=== PATIENT | female | born 1995 | race Two or more races ===

== ENCOUNTER 2025-05-04 16:59 | Emergency (ER) | payer OTHER ==
[~2025-05-04] VITALS: Ht 154.9 cm; Wt 70.0 kg
[2025-05-04] MEDS ORDERED: ACETAMINOPHEN 500 MG TAB or CAP PO ONE (18:00)
--- NOTE | 2025-05-04 18:06 | ED.PDOC ---
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 Pt states she has been having heavy vaginal bleeding with clots since 1630 this afternoon. Pt states she started to have diffuse lower pelvic abdominal pain, and states while using the restroom, she started to pass multiple blood clots. Pt started to have cramping lower abdominal pain and came to the ED for evaluation. Pt otherwise in the ED, states she is not on control. Pt denies associated fever, chills, nausea, vomiting, dizziness or associated symptoms. Pt has noted BP of 141/84 with otherwise stable vitals including temp of 98.2 F, RR 18, heart rate 92 and 02 sat of 98% on room air. Pt otherwise denies any other symptoms at this time. 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 Moist mucous membranes.) Neck: Full Range of Motion, Normal Inspection Respiratory: Lungs Clear, No Accessory Muscle Use, No Respiratory Distress, Normal Breath Sounds Cardiovascular: No Edema, No JVD, Regular Rate/Rhythm Breast Exam: Deferred Gastrointestinal: Non Tender, Soft Genitalia: Deferred Pelvic: Deferred Rectal: Deferred Extremities: Normal inspection, Normal range of motion, Non-tender, No pedal edema Neurologic: Alert (Oriented x4), Normal Affect, Normal Mood, Other (Ambulatory) Cerebellar Function: NOT DONE Reflexes: NOT DONE Skin: Dry, Normal Color, Warm Lymphatic: NOT DONE Was a procedure done? Was a procedure done?: No Differential Diagnosis (DIRECTOR OF SPEECH PATHOLOGY) Vaginal Bleeding: Blood Loss Anemia, Hormonal, Menorrhagia, Menstrual Bleeding, Myomatous Uterus, UTI, Vaginitis, Other (, coagulopathy, among others) X-Ray, Labs, Meds, VS Vital Signs Date Time Temp Pulse Resp B/P (MAP) Pulse Ox O2 Delivery O2 Flow Rate FiO2 05/04/25 17:04 98.2 92 18 141/84 98 98.2 Lab Test 05/04/25 18:14 05/04/25 17:56 Range/Units White Blood Count 9.4 4.4-10.8 10^3/uL Red Blood Count 4.72 4.0-5.20 10^6/uL Hemoglobin 14.0 12.2-16.2 g/dL Hematocrit 41.6 36.0-46.0 % Mean Corpuscular Volume 88.1 80.0-100.0 fL Mean Corpuscular Hemoglobin 29.8 28.0-32.0 pg Mean Corpuscular Hemoglobin Concent 33.8 32.0-36.0 g/dL Red Cell Distribution Width 13.7 11.8-14.3 % Platelet Count 344 140-450 10^3/uL Mean Platelet Volume 8.1 6.9-10.8 fL Neutrophils (%) (Auto) 59.0 37.0-80.0 % Lymphocytes (%) (Auto) 33.0 10.0-50.0 % Monocytes (%) (Auto) 6.0 0.0-12.0 % Eosinophils (%) (Auto) 1.6 0.0-7.0 % Basophils (%) (Auto) 0.4 0.0-2.0 % Neutrophils # (Auto) 5.5 1.6-8.6 10 ^3/uL Lymphocytes # (Auto) 3.1 0.4-5.4 10 ^3/uL Monocytes # (Auto) 0.6 0-1.3 10 ^3/uL Eosinophils # (Auto) 0.1 0-0.8 10 ^3/uL Basophils # (Auto) 0 0-0.2 10 ^3/uL Nucleated Red Blood Cells 0.2 % Prothrombin Time 10.8 9.3-11.8 sec Prothrombin Time INR 1.02 0.9-1.15 Activated Partial Thromboplast Time 29.7 24.5-34.5 SEC Sodium Level 139 136-145 mmol/L Potassium Level 3.7 3.5-5.1 mmol/L Chloride Level 104 98-107 mmol/L Carbon Dioxide Level 25 20-31 mmol/L Anion Gap 10 5-15 Blood Urea Nitrogen 7 L 9-23 mg/dL Creatinine 0.66 0.550-1.02 mg/dL Glomerular Filtration Rate Calc 122 >90 mL/min BUN/Creatinine Ratio 10.6 10.0-20.0 Serum Glucose 102 74-106 mg/dL Calcium Level 9.6 8.7-10.4 mg/dL Urine Color Colorless Yellow Urine Clarity Clear Clear Urine pH 6.0 5.0-9.0 Urine Specific [place] 1.010 1.001-1.035 Urine Protein Negative Negative Urine Ketones Negative Negative Urine Blood 3+ H Negative /uL Urine Nitrite Negative Negative Urine Bilirubin Negative Negative Urine Urobilinogen Normal Negative mg/dL Urine Leukocyte Esterase Trace Negative /uL Urine RBC 309 0 - 4 /hpf Urine Microscopic WBC 26 H 0-5 /HPF Urine Squamous Epithelial Cells Few <5 /hpf Urine Bacteria None seen None Seen /hpf Urine Glucose Normal Normal mg/dL Urine Test Positive Negative [place] [address] Ph: [phone] DIAGNOSTIC IMAGING Diagnostic Imaging Report : [id number] Signed PATIENT: DAMARIS ROMOACCT: [id number] UNIT: [id number] : 1995 LOC: ER ROOM / BED: / AGE / SEX: 29 / F ADM STATUS: REG ER SERVICE [id number] ORDERING PHYSICIAN: CHRISTIAN PATEL MD PROCEDURE(s): OB4US - OB ULTRASOUND COMP LESS 14WKS REASON: vag bleed, pelvic pain ORDER NUMBER(s): [id number], ACCESSION NUMBER(s): [id number] EXAM: US OB ULTRASOUND COMP LESS 14WKS HISTORY: vag bleed, pelvic pain COMPARISON: US OB TRANS VAGINAL US on DOS: 05/04/25 TECHNIQUE: Transabdominal and transvaginal imaging was utilized. Grayscale and color doppler evaluation. Images were stored in the patient's permanent medical record. FINDINGS: UTERUS: 8.1 x 5.1 x 6.8 cm. No visualized intrauterine . Significant abnormal endometrial stripe thickening with abnormal cystic components with insinuating /curvilinear morphology along the endometrial stripe. RIGHT OVARY: 3.6 x 3.5 x 1.8 cm.Normal vascularity. No suspicious masses or cysts. LEFT OVARY: 3 x 3.9 x 1.8 cm. Normal vascularity. No suspicious masses or cysts. OTHER: No free fluid is identified. IMPRESSION: 1. No visualized intrauterine . 2. Significant abnormal endometrial stripe thickening with abnormal cystic components with insinuating /curvilinear morphology along the endometrial stripe. Consider short-term imaging follow-up along with serial beta HCG and imaging findings may represent in progress ATED BY: LISA GARCIA MD DICTATED DATE/TIME: 05/04/251931 SIGNED BY: LISA GARCIA MD SIGNED DATE/TIME: 05/04/251931 CC: X-Ray, Labs, Meds, VS Comment 29-year-old female with no significant past medical history complaining of pelvic pain and heavy vaginal bleeding with clots Vitals remarkable for BP 141/84 Exam unremarkable Rhythm strip independently interpreted by me: Sinus rhythm, rate 92, no ectopy. Ob ultrasound IMPRESSION: 1. No visualized intrauterine . 2. Significant abnormal endometrial stripe thickening with abnormal cystic components with insinuating /curvilinear morphology along the endometrial stripe. Consider short-term imaging follow-up along with serial beta HCG and imaging findings may represent in progress CBC, basic metabolic panel, coagulation panel unremarkable. UA positive for blood and WBCs, no bacteria. Urine positive. Serum quantitative hCG pending Patient treated with the following in the ED: Tylenol 1 g p.o. On re-evaluation, pain has improved. Vitals were stable. Current workup could represent early versus ectopic versus in progress. Patient advised regarding findings and need for follow-up either in the ED or with OBGYN for repeat serum quantitative hCG and repeat ultrasound. Patient appears stable for discharge and will be referred to Dr. Cobos. Rx Tylenol Time of 1ST Reevaluation: 21:00 Reevaluation 1ST: Improved Patient Education/Counseling: Diagnosis, Treatment Family Education/Counseling: No Family Present Departure 1 Departure Time of Disposition: 21:00 Impression: Primary Impression: Vaginal bleeding affecting early Disposition: 01 HOME / SELF CARE / HOMELESS Condition: Stable Referrals: GEORGE COBOS DO Additional Instructions: Your blood tests were unremarkable. Your test was positive. Your ultrasound did not show a inside the uterus, but it may be either too early to see the , you may have recently been and are now having a miscarriage, or you may have a outside the uterus (known as an ectopic ). I have prescribed pain medication. Follow-up with an OBGYN or in ED in 2-3 days for repeat hormone level (serum quantitative hCG) and repeat ultrasound. [facility] [id number] [place] [id number] Ph: [phone] DIAGNOSTIC IMAGING Diagnostic Imaging Report : [id number] Signed PATIENT: DAMARIS ROMO ACCT: [id number] UNIT: [id number] : 1995 LOC: ER ROOM / BED: / AGE / SEX: 29 / F ADM STATUS: REG ER SERVICE [id number] ORDERING PHYSICIAN: CHRISTIAN PATEL MD PROCEDURE(s): OB4US - OB ULTRASOUND COMP LESS 14WKS REASON: vag bleed, pelvic pain ORDER NUMBER(s): [id number], ACCESSION NUMBER(s): [id number] EXAM: US OB ULTRASOUND COMP LESS 14WKS HISTORY: vag bleed, pelvic pain COMPARISON: US OB TRANS VAGINAL US on DOS: 05/04/25 TECHNIQUE: Transabdominal and transvaginal imaging was utilized. Grayscale and color doppler evaluation. Images were stored in the patient's permanent medical record. FINDINGS: UTERUS: 8.1 x 5.1 x 6.8 cm. No visualized intrauterine . Significant abnormal endometrial stripe thickening with abnormal cystic components with insinuating /curvilinear morphology along the endometrial stripe. RIGHT OVARY: 3.6 x 3.5 x 1.8 cm.Normal vascularity. No suspicious masses or cysts. LEFT OVARY: 3 x 3.9 x 1.8 cm. Normal vascularity. No suspicious masses or cysts. OTHER: No free fluid is identified. IMPRESSION: 1. No visualized intrauterine . 2. Significant abnormal endometrial stripe thickening with abnormal cystic components with insinuating /curvilinear morphology along the endometrial stripe. Consider short-term imaging follow-up along with serial beta HCG and imaging findings may represent in progress e-Prescriptions Acetaminophen (Tylenol Extra Strength) 500 Mg Tab 1000 MG PO Q6HP PRN, #30 TAB Prov: CHRISTIAN PATEL MD 05/04/25 Discharged With: Relative Critical Care Note Critical Care Time?: No Stability Stability form required: No Heart Score Heart Score: Heart Score Response (Comments) Value History N/A 0 EKG N/A 0 Age N/A 0 Risk Factors N/A 0 Troponin N/A 0 Total 0 I personally scribed for CHRISTIAN PATEL MD ([facility]) on 05/04/25 at 18:06. Electronically submitted by Jani Flores ([facility]). I personally scribed for CHRISTIAN PATEL MD ([email or web address]) on 05/04/25 at 18:25. Electronically submitted by Jani Flores ([facility]). I personally scribed for CHRISTIAN PATEL MD ([facility]) on 05/04/25 at 20:22. Electronically submitted by Jani Flores ([facility]). CHRISTIAN PATEL MD May 04, 2025 18:06
[2025-05-04 18:31] LABS: Hematocrit 41.6 % (36.0-46.0); Hemoglobin 14.0 g/dL (12.2-16.2); Mean Corpuscular Hemoglobin 29.8 pg (28.0-32.0); Mean Corpuscular Volume 88.1 fL (80.0-100.0); Nucleated Red Blood Cells % 0.2 %
[2025-05-04 18:35] LABS: Urine Protein, UAD Negative (Negative)
[2025-05-04 18:45] LABS: Chloride 104 mmol/L (98-107); INR 1.02 (0.9-1.15); Partial Thromboplastin Time 29.7 SEC (24.5-34.5); Potassium 3.7 mmol/L (3.5-5.1); Prothrombin Time 10.8 sec (9.3-11.8); Sodium 139 mmol/L (136-145)
[2025-05-04 18:46] LABS: Anion Gap 10 (5-15); Calcium 9.6 mg/dL (8.7-10.4); Carbon Dioxide 25 mmol/L (20-31)
[2025-05-04 18:51] LABS: BUN/Creatinine Ratio 10.6 (10.0-20.0); Glucose 102 mg/dL (74-106)
[2025-05-04 18:54] LABS: Blood Urea Nitrogen 7 mg/dL (9-23)
--- NOTE | 2025-05-04 19:34 | DVH ---
EXAM: US OB ULTRASOUND COMP LESS 14WKS HISTORY: vag bleed, pelvic pain COMPARISON: US OB TRANS VAGINAL US on DOS: 05/04/25 TECHNIQUE: Transabdominal and transvaginal imaging was utilized. Grayscale and color doppler evaluati on. Images were stored in the patient's permanent medical record. FINDINGS: UTERUS: 8.1 x 5.1 x 6.8 cm. No visualized intrauterine . Significant abnormal endometrial st ripe thickening with abnormal cystic components with insinuating /curvilinear morphology along the en dometrial stripe. RIGHT OVARY: 3.6 x 3.5 x 1.8 cm.Normal vascularity. No suspicious masses or cysts. LEFT OVARY: 3 x 3.9 x 1.8 cm. Normal vascularity. No suspicious masses or cysts. OTHER: No free fluid is identified. IMPRESSION: 1. No visualized intrauterine . 2. Significant abnormal endometrial stripe thickening with abnormal cystic components with insinuatin g /curvilinear morphology along the endometrial stripe. Consider short-term imaging follow-up along w ith serial beta HCG and imaging findings may represent in progress
[2025-05-04] MEDS ORDERED: ACET-1304 PO (21:03)
[2025-05-04 21:47] VITALS: BP 144/91; PULSE 73; RESP 20; TEMP 98.5; O2SAT 100
== END 2025-05-04 21:50 | disposition home or self-care (01) ==
LOC: ER 16:59
DX: O20.9 Hemorrhage in early pregnancy, unspecified (principal)
CPT/HCPCS: 36415; 76801; 76817; 80048; 81001; 81025; 84702; 85025; 85610; 85730

== ENCOUNTER 2025-05-21 10:53 | Outpatient (CLI) | payer OTHER ==
[~2025-05-21 10:53] MED LIST: ACET-1304 PO
[2025-05-21 11:36] LABS: Hematocrit 34.5 % (36.0-46.0); Hemoglobin 11.4 g/dL (12.2-16.2); Mean Corpuscular Hemoglobin 29.0 pg (28.0-32.0); Mean Corpuscular Volume 87.7 fL (80.0-100.0); Nucleated Red Blood Cells % 0.0 %
[2025-05-22] MEDS ORDERED: IBUP-1454 PO (04:52)
[2025-05-22] MEDS ORDERED: ACET650T12 PO (04:52)
== END 2025-05-21 17:00 | disposition home or self-care (01) ==
LOC: LAB 10:53
DX: O03.9 Complete or unspecified spontaneous abortion without complication (principal); R10.2 Pelvic and perineal pain
CPT/HCPCS: 36415; 84702; 85025

== ENCOUNTER 2025-05-22 02:01 | Emergency (ER) | payer OTHER ==
[~2025-05-22] VITALS: Ht 160 cm; Wt 79.5 kg
--- NOTE | 2025-05-22 02:31 | ED.PDOC ---
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 Patient is a had a miscarriage last May 04, has been having vaginal bleeding since then. She saw her OB yesterday, and was prescribed Cytotec. However a she took the medications, vaginal bleeding the got more profuse, with clots, with worsening of lower abdominal cramping pain, nausea, vomiting. States she has been changing pads 4x/ hour recently REVIEW OF SYSTEMS: No fever, no chills, or fatigue HEENT: No sore throat, no earache, no congestion, no neck pain. Cardiac: No chest pain. No palpitations. Lungs: No shortness of breath, no cough. GI: (+) nausea, (+) vomiting, no diarrhea, no constipation, (+) abdominal pain : No dysuria, frequency, or urgency. No hematuria. (+) vaginal bleeding Musculoskeletal: No joint pain , no joint swelling, no extremity edema. Skin: No rash, no itching. Neuro: No headache, no dizziness, no weakness PHYSICAL EXAM: General: Awake, alert and oriented. No acute distress. Skin: Skin in warm, dry and intact without rashes or lesions. HEENT: The head is normocephalic and atraumatic. Conjunctivae are clear without exudates or hemorrhage. Sclera is non-icteric. Neck: Normal range of motion. No JVD. Cardiac: Regular rate Respiratory: No signs of respiratory distress. No Stridor. Abdomen: Positive suprapubic tenderness Extremities: Upper and lower extremities are atraumatic in appearance without deformity. Neurological: The patient is awake, alert and oriented to person, place, and time with normal speech. Speech is clear. There is no facial asymmetry. Psychiatric: Appropriate mood and affect. Good judgement and insight. Chief Complaint: Vaginal Bleed Time Seen by MD: 02:29 Reviewed Notes: Nurses Notes Allergies: Coded Allergies: NO KNOWN ALLERGIES (Unverified , 05/04/25) Home Meds Active Scripts Ibuprofen (Ibuprofen) 600 Mg Tab, 1 TAB PO TID, #15 TAB Prov:CLEM JEFFERSON MD 05/22/25 Acetaminophen (Acetaminophen Er) 650 Mg Tab, 650 MG PO TIDPRN PRN, #15 TAB Prov:CLEM JEFFERSON MD 05/22/25 Acetaminophen (Tylenol Extra Strength) 500 Mg Tab, 1000 MG PO Q6HP PRN, #30 TAB Prov:CHRISTIAN PATEL MD 05/04/25 Mode of Arrival: Ambulatory Timing: Days Past Medical History PAST MEDICAL HISTORY: Denies Surgical History: Denies all surgeries 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 Was a procedure done?: No Differential Diagnosis (RIG OPERATOR) Vaginal Bleeding: - Incomplete, - Inevitable, - Missed, - Threatened, Blood Loss Anemia, Menorrhagia, Menometrorrhagia, UTI X-Ray, Labs, Meds, VS Vital Signs Date Time Temp Pulse Resp B/P (MAP) Pulse Ox O2 Delivery O2 Flow Rate FiO2 05/22/25 05:31 Room Air* 0 21 05/22/25 04:32 70 18 120/70 05/22/25 04:05 73 18 105/72 05/22/25 03:49 97.8 73 14 105/72 (83) 99 97.8 05/22/25 02:01 97.7 73 18 122/75 100 97.7 Lab Test 05/22/25 02:48 Range/Units Hemoglobin 11.8 L 12.2-16.2 g/dL Hematocrit 34.8 L 36.0-46.0 % Current Medications Medications (Trade) Dose Ordered Sig/Steve Route Start Time Stop Time Status Last Admin Sodium Chloride 1,000 ml @ 1,000 mls/hr Q1H ONCE IV 05/22/25 02:30 05/22/25 03:29 DC 05/22/25 04:05 Ondansetron HCl (Zofran) 4 mg ONCE ONCE IV 05/22/25 02:30 05/22/25 02:31 DC 05/22/25 04:05 Morphine Sulfate 2 mg ONCE ONCE IV 05/22/25 02:30 05/22/25 02:31 DC 05/22/25 04:05 Time of 1ST Reevaluation: 02:25 Reevaluation 1ST: Unchanged Patient Education/Counseling: Need For Follow Up Family Education/Counseling: No Family Present Departure 1 Departure Time of Disposition: 04:51 Impression: Primary Impression: Miscarriage Additional Impression: Vaginal bleeding Disposition: 01 HOME / SELF CARE / HOMELESS Condition: Stable Additional Instructions: ED DISCHARGE INSTRUCTIONS Instructions: Please read all instructions provided in this packet carefully. Although you have been discharged from the Emergency Department, this does not mean that you have a "clean bill of health". No definitive diagnosis for your symptoms has been made today. It is possible that you are in the process of developing a serious illness. 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 If you are unable to get an appointment, return to the ED for re-evaluation. e-Prescriptions Ibuprofen (Ibuprofen) 600 Mg Tab 1 TAB PO TID, #15 TAB Prov: CLEM JEFFERSON MD 05/22/25 Acetaminophen (Acetaminophen Er) 650 Mg Tab 650 MG PO TIDPRN PRN, #15 TAB Prov: CLEM JEFFERSON MD 05/22/25 Comments 29-year-old female with vaginal bleeding pelvic cramping after taking Cytotec. Patient is follow up with her Ob later today. No severe anemia/significant drop in H&H from previous. She is advised to keep follow up as recommended. Critical Care Note Critical Care Time?: No Stability Stability form required: No I personally scribed for CLEM JEFFERSON MD ([email or web address]) on 05/22/25 at 02:31. Electronically submitted by Michel Diaz ([email or web address]). CLEM JEFFERSON MD May 22, 2025 02:31
[2025-05-22 02:59] LABS: Hematocrit 34.8 % (36.0-46.0); Hemoglobin 11.8 g/dL (12.2-16.2)
[2025-05-22 03:49] VITALS: TEMP 97.8; O2SAT 99
[2025-05-22] MEDS: ONDANSETRON HCL 4 MG/2 ML VIAL IV ONE (04:05)
[2025-05-22] MEDS: MORPHINE SULFATE INJ 2 MG/ml SYRG IV ONE (04:05)
[2025-05-22] MEDS: SODIUM CHLORIDE 0.9% 1,000 ML IV ONE (04:05)
[2025-05-22 04:32] VITALS: BP 120/70; PULSE 70; RESP 18
[2025-05-22] MEDS ORDERED: IBUP-1454 PO (04:52)
[2025-05-22] MEDS ORDERED: ACET650T12 PO (04:52)
== END 2025-05-22 04:53 | disposition home or self-care (01) ==
LOC: ER 02:01
DX: O03.9 Complete or unspecified spontaneous abortion without complication (principal); Z79.1 Long term (current) use of non-steroidal anti-inflammatories (NSAID); Z79.899 Other long term (current) drug therapy
CPT/HCPCS: 36415; 85014; 85018; 96361; 96374; 96375; 99284; J2270; J2405; J7030

== ENCOUNTER 2025-05-29 07:34 | Outpatient (CLI) | payer OTHER ==
[~2025-05-29 07:34] MED LIST changes: +ACET650T12 PO; +IBUP-1454 PO
[2025-05-29 07:51] LABS: Hematocrit 32.9 % (36.0-46.0); Hemoglobin 11.0 g/dL (12.2-16.2); Mean Corpuscular Hemoglobin 29.4 pg (28.0-32.0); Mean Corpuscular Volume 87.4 fL (80.0-100.0); Nucleated Red Blood Cells % 0.1 %
== END 2025-05-29 17:00 | disposition home or self-care (01) ==
LOC: LAB 07:34
DX: Z34.01 Encounter for supervision of normal first pregnancy, first trimester (principal); Z3A.00 Weeks of gestation of pregnancy not specified
CPT/HCPCS: 36415; 84702; 85025